=== PATIENT | female | born 1995 | race Caucasian/White ===

== ENCOUNTER 2021-01-11 21:12 | Emergency (ER) | payer BC, OTHER ==
[2021-01-11] MEDS ORDERED: diphenhydrAMINE 50 MG/ML SDV IM ONE (21:25)
--- NOTE | 2021-01-11 21:30 | EDM.PDOC ---
ED HPI GENERAL MEDICAL PROBLEM - General Chief Complaint: General Stated Complaint: eye swelling Time Seen by Provider: 01/11/21 21:20 Source of Information: Reports: Patient History Limitations: Reports: No Limitations - History of Present Illness INITIAL COMMENTS - FREE TEXT/NARRATIVE: right upper eyelid swelling. States that she had been out to eat mac and cheese and a acacia roll and then shortly after she started to vomit and then about 2030 she took pepto and 7-up and after that she noted her left eyelid was swollen. She denies any other itching or swelling. She doesn't know of anything that she would have touched and then touched her eye as in like cleaning product etc. She denies any change in vision with it. 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, and Family history Social & Family History - Tobacco Use Tobacco Use Status *Q: Never Tobacco User Second Hand Smoke Exposure: No - Caffeine Use Caffeine Use: Reports: None - Recreational Drug Use Recreational Drug Use: No ED ROS GENERAL - Review of Systems Review Of Systems: See Below Constitutional: Denies: Fever, Chills, Fatigue HEENT: Reports: Other (see HPI) Respiratory: Denies: Shortness of Breath, Wheezing Cardiovascular: Reports: No Symptoms GI/Abdominal: Reports: No Symptoms Skin: Reports: Urticaria (right upper eyelid.) Neurological: Reports: No Symptoms ED EXAM, GENERAL - Physical Exam Exam: See Below Exam Limited By: No Limitations General Appearance: Alert, WD/WN, No Apparent Distress Ears: Normal External Exam, Normal Canal, Normal TMs Neck: Normal Inspection Respiratory/Chest: No Respiratory Distress, Lungs Clear, Normal Breath Sounds Cardiovascular: Regular Rate, Rhythm Extremities: Normal Inspection, Normal Capillary Refill Neurological: Alert, Oriented Skin Exam: Warm, Dry, Intact Course - Vital Signs Last Recorded V/S: Last Vital Signs Temp 98.2 F 01/11/21 21:17 Pulse 122 H 01/11/21 21:17 Resp 20 01/11/21 21:17 BP 150/95 H 01/11/21 21:17 Pulse Ox 98 01/11/21 21:17 - Orders/Labs/Meds Meds: Medications Discontinued Medications Generic Name Dose Route Start Last Admin Trade Name Tashi PRN Reason Stop Dose Admin Diphenhydramine HCl 50 mg 01/11/21 21:25 01/11/21 21:33 Diphenhydramine 50 Mg/Ml Sdv IM 01/11/21 21:26 50 mg ONETIME ONE Administration Departure - Departure Time of Disposition: 21:47 Disposition: Home, Self-Care 01 Condition: Good Clinical Impression: Contact allergy eyelid Qualifiers: Laterality: right Qualified Code(s): H01.113 - Allergic dermatitis of right eye, unspecified eyelid - Discharge Information *PRESCRIPTION DRUG MONITORING PROGRAM REVIEWED*: Not Applicable *COPY OF PRESCRIPTION DRUG MONITORING REPORT IN PATIENT GIOVANNI: Not Applicable Forms: ED Department Discharge Additional Instructions: repeat benadryl 25 mg orally every 4-6 hours as needed for itching or swelling recheck if any difficulty breathing or swelling greatly increases. Sepsis Event Note (ED) - Evaluation Sepsis Screening Result: No Definite Risk - Focused Exam Vital Signs: Vital Signs Temp Pulse Resp BP Pulse Ox 01/11/21 21:17 98.2 F 122 H 20 150/95 H 98 - Problem List & Annotations (1) Contact allergy eyelid SNOMED Code(s): 06421723 Code(s): H01.119 - ALLERGIC DERMATITIS OF UNSPECIFIED EYE, UNSPECIFIED EYELID Status: Acute Priority: High Qualifiers: Laterality: right Qualified Code(s): H01.113 - Allergic dermatitis of right eye, unspecified eyelid - Problem List Review Problem List Initiated/Reviewed/Updated: Yes
== END 2021-01-11 21:48 | disposition home or self-care (01) ==
LOC: CC.ED 21:12
DX: H01.111 Allergic dermatitis of right upper eyelid (principal)
CPT/HCPCS: 96372; 99283; J1200